=== PATIENT | male | born 1985 | race Caucasian/White ===

== ENCOUNTER 2017-05-02 15:12 | Emergency (ER) | payer MEDICAID ==
[~2017-05-02] VITALS: Ht 170.2 cm; Wt 90.0 kg
[2017-05-02 15:27] VITALS: BP 111/62; PULSE 81; RESP 16; TEMP 98.6; O2SAT 99
[2017-05-02 16:20] VITALS: RESP 16; O2SAT 96
[2017-05-02] MEDS ORDERED: SODIUM CHLOR 0.9% 1000 ML INJ 1,000 ML IV SCH (16:20)
[2017-05-02] MEDS ORDERED: LEVO100T5 PO (16:24)
[2017-05-02] MEDS ORDERED: XANA2TAB2 PO (16:24)
--- NOTE | 2017-05-02 16:29 | PD ---
HPI Chief Complaint: GI Complaint Time Seen by Provider: 16:10 Travel History International Travel<30 days: No Contact w/Intl Traveler<30days: No Traveled to known affect area: No History of Present Illness HPI Patient is a 31-year-old male who presents to emergency room with multiple complaints. Patient reports that he flew from [facility] to [place] one week ago , patient reports that he has been feeling sick for the past week. Patient reports that he has been having fevers and chills, reports that he has been having bodyaches, myalgias, nausea and vomiting. Patient did receive the flu shot this year, reports that multiple members of his family was seen and diagnosed with influenza. Overall, patient reports that he has been feeling so weak; he has not been able to eat or drink anything due to his symptoms. Patient reports that he fell yesterday and today while in the shower and landed on his left hip because he has been feeling so weak. Denies any trauma to his head or neck. Denies LOC. Denies chest pain/sob. Reports that he did began to have a nonproductive cough recently. Patient reports pain to his epigastrium, reports cramping from vomiting so much. Patient reports that he is currently not on any medications at this time. PFSH Past Medical History Medical History: Denies Significant Hx Past Surgical History Surgical History: No Previous Surgery Social History Alcohol Use: Yes Tobacco Use: Yes Substance Use: No Allergies-Medications (Allergen,Severity, Reaction): Coded Allergies: penicillin G (Verified Allergy, Intermediate, loose stool,nausea, 05/02/17 ) tramadol (Verified Allergy, Intermediate, nausea, 05/02/17) ibuprofen (Verified Adverse Reaction, Unknown, stomach ache, 05/02/17) Reported Meds & Prescriptions Reported Meds & Active Scripts Active Zofran (Ondansetron HCl) 4 Mg Tab 4 Mg PO Q6HR PRN Reported Xanax (Alprazolam) 2 Mg Tab 2 Mg PO Q8H PRN Levothyroxine (Levothyroxine Sodium) 100 Mcg Tab 100 Mcg PO DAILY Review of Systems General / Constitutional: Positive: Fever, Chills Eyes: No: Visual changes HENT: No: Headaches Cardiovascular: No: Chest Pain or Discomfort Respiratory: Positive: Cough, No: Shortness of Breath Gastrointestinal: Positive: Nausea, Vomiting, Diarrhea, No: Abdominal Pain Genitourinary: No: Dysuria Musculoskeletal: Positive: Pain (left-sided hip pain) Skin: No Rash Neurologic: No: Weakness Psychiatric: No: Depression Endocrine: No: Polydipsia Hematologic/Lymphatic: No: Easy Bruising Physical Exam Narrative GENERAL: moderate distress SKIN: Focused skin assessment warm/dry. HEAD: Atraumatic. Normocephalic. EYES: Pupils equal and round. No scleral icterus. No injection or drainage. ENT: No nasal bleeding or discharge. Mucous membranes pink and moist. NECK: Trachea midline. No JVD. CARDIOVASCULAR: Regular rate and rhythm. No murmur appreciated. RESPIRATORY: No accessory muscle use. Clear to auscultation. Breath sounds equal bilaterally. GASTROINTESTINAL: Abdomen soft, tenderness to epigastrium, nondistended. Hepatic and splenic margins not palpable. MUSCULOSKELETAL: No obvious deformities. No clubbing. No cyanosis. No edema. Patient with bruising to the left hip, patient with pain with range of motion to left hip, no obvious deformities, pulses intact, neurovascular intact NEUROLOGICAL: Awake and alert. No obvious cranial nerve deficits. Motor grossly within normal limits. Normal speech. PSYCHIATRIC: Appropriate mood and affect; insight and judgment normal. Data Data Last Documented VS Vital Signs Date Time Temp Pulse Resp B/P (MAP) Pulse Ox O2 Delivery O2 Flow Rate FiO2 05/02/17 17:34 16 05/02/17 16:20 96 Room Air 05/02/17 15:27 98.6 81 111/62 (78) Orders Orders Complete Blood Count With Diff (05/02/17 16:20) Comprehensive Metabolic Panel (05/02/17 16:20) Lipase (05/02/17 16:20) Prothrombin Time / Inr (Pt) (05/02/17 16:20) Act Partial Throm Time (Ptt) (05/02/17 16:20) Urinalysis - C+S If Indicated (05/02/17 16:20) Iv Access Insert/Monitor (05/02/17 16:20) Ecg Monitoring (05/02/17 16:20) Oximetry (05/02/17 16:20) NPO (05/02/17 16:20) Morphine Inj (Morphine Inj) (05/02/17 16:30) Ondansetron Inj (Zofran Inj) (05/02/17 16:30) Sodium Chlor 0.9% 1000 Ml Inj (Ns 1000 M (05/02/17 16:20) Sodium Chloride 0.9% Flush (Ns Flush) (05/02/17 16:30) Chest, Single Ap (05/02/17 16:20) Famotidine Inj (Pepcid Inj) (05/02/17 16:30) Influenzae A/B Antigen (05/02/17 16:20) Hip, Uni(Ap&Lat) W Ap Pelvis (05/02/17 ) Sodium Chlor 0.9% 1000 Ml Inj (Ns 1000 M (05/02/17 16:30) Acetaminophen (Tylenol) (05/02/17 17:45) Labs Laboratory Tests Test 05/02/17 16:30 05/02/17 17:30 White Blood Count 7.5 TH/MM3 Red Blood Count 4.87 MIL/MM3 Hemoglobin 13.7 GM/DL Hematocrit 41.9 % Mean Corpuscular Volume 86.0 FL Mean Corpuscular Hemoglobin 28.1 PG Mean Corpuscular Hemoglobin Concent 32.6 % Red Cell Distribution Width 12.8 % Platelet Count 244 TH/MM3 Mean Platelet Volume 8.8 FL Neutrophils (%) (Auto) 59.4 % Lymphocytes (%) (Auto) 34.5 % Monocytes (%) (Auto) 4.2 % Eosinophils (%) (Auto) 0.5 % Basophils (%) (Auto) 1.4 % Neutrophils # (Auto) 4.5 TH/MM3 Lymphocytes # (Auto) 2.6 TH/MM3 Monocytes # (Auto) 0.3 TH/MM3 Eosinophils # (Auto) 0.0 TH/MM3 Basophils # (Auto) 0.1 TH/MM3 CBC Comment DIFF FINAL Differential Comment Prothrombin Time 10.2 SEC Prothromb Time International Ratio 1.0 RATIO Activated Partial Thromboplast Time 25.7 SEC Blood Urea Nitrogen 7 MG/DL Creatinine 0.90 MG/DL Random Glucose 92 MG/DL Total Protein 7.6 GM/DL Albumin 3.4 GM/DL Calcium Level 9.3 MG/DL Alkaline Phosphatase 66 U/L Aspartate Amino Transf (AST/SGOT) 15 U/L Alanine Aminotransferase (ALT/SGPT) 21 U/L Total Bilirubin 0.5 MG/DL Sodium Level 141 MEQ/L Potassium Level 4.0 MEQ/L Chloride Level 106 MEQ/L Carbon Dioxide Level 29.8 MEQ/L Anion Gap 5 MEQ/L Estimat Glomerular Filtration Rate 98 ML/MIN Lipase 118 U/L Urine pH 7.5 Urine Protein NEG mg/dL Urine Glucose (UA) NEG mg/dL Urine Ketones NEG mg/dL Urine Occult Blood NEG Urine Nitrite NEG Urine Bilirubin NEG Urine Leukocyte Esterase NEG MDM Medical Decision Making Medical Screen Exam Complete: Yes Emergency Medical Condition: Yes Medical Record Reviewed: Yes Interpretation(s) Vital Signs Date Time Temp Pulse Resp B/P (MAP) Pulse Ox O2 Delivery O2 Flow Rate FiO2 05/02/17 15:27 98.6 81 16 111/62 (78) 99 Differential Diagnosis Influenza, viral syndrome, gastritis, gastroenteritis, electrolyte abnormality, pneumonia Narrative Course Patient is a 31-year-old male who presents to emergency room with complaints of flulike symptoms which has been ongoing for the past week. Patient reports that his whole family is sick with the flu - patient reports that it has been 5 days since he has been feeling extremely weak with decreased po intake. During the course of the patients emergency department visit, the patients history, examination, and differential diagnosis were reviewed with the patient. The patient was placed on a court monitor with oximetry and frequent blood pressure monitoring. The patient had an IV access obtained and blood work sent for analysis. The patient was initially provided IV fluids, IV Zofran for his nausea and vomiting as well as IV morphine for his hip pain The patients laboratory studies were reviewed and remarkable for: CBC & BMP Diagram 05/02/17 16:30 Total Protein 7.6, Albumin 3.4, Calcium Level 9.3, Alkaline Phosphatase 66, Aspartate Amino Transf (AST/SGOT) 15, Alanine Aminotransferase (ALT/SGPT) 21, Total Bilirubin 0.5 Radiology studies were reviewed and remarkable for: Last Impressions Chest X-Ray 05/02/17 1620 Signed Impressions: Service Date/Time: Tuesday, May 02, 2017 16:40 - CONCLUSION: 1. No acute cardiopulmonary disease. Kristofer Bah MD Hip and Pelvis X-Ray 05/02/17 0000 Signed Impressions: Service Date/Time: Tuesday, May 02, 2017 16:40 - CONCLUSION: 1. No acute fracture or dislocation. Kristofer Bah MD Microbiology Date/Time Source Procedure Growth Status 05/02/17 16:35 Nasal Aspirate Influenza Types A,B Antigen (ROBERT) - Final NEGATIVE FOR FLU A AND B ANTIGEN.... Complete All labs and all studies reviewed in detail: cbc: wnl cmp: wnl UA Patient feeling much better at this time, patient with most likely viral syndrome. Labs are essentially unremarkable and VSS. Discussed need for increased oral hydration with fluids. Plan to discharge patient home with zofran for nausea. He will follow up with his pcp and will return to ER as needed. Signs and symptoms of when to return to the ER was reviewed with patient in detail. Patient was discharged from the ER as he was feeling better. While being discharged, patient requesting narcotic pain medications. Discussed with him that he can take acetaminophen which is appropriate for his hip strain/hip bruising. Patient reports that he cannot work without taking narcotic pain medications and requests a script for narcotic pain medications. Patient began to yell and scream myself as well as staff. I encouraged rest/ ice to hip - work note was provided for him. Patient is not happy as he did not receive a script for narcotic pain medications at discharge Diagnosis Primary Impression: Nausea vomiting and diarrhea Additional Impressions: Viral syndrome Sprain of left hip Patient Instructions: General Instructions Additional Instructions: Please provide patient with a copy of their lab work and studies at discharge* * Please follow up with your primary care doctor in 2-3 days Return to the ER if symptoms worsen or progress Return to the ER as needed Please drink plenty of fluids Med/Other Pt SpecificInfo: Prescription(s) given Scripts Ondansetron (Zofran) 4 Mg Tab 4 MG PO Q6HR Y for NAUSEA OR VOMITING, #20 TAB 0 Refills Prov: Kimberly Garland DO 05/02/17 Disposition: 01 DISCHARGE HOME Condition: Stable Kimberly Garland DO May 02, 2017 16:29
[2017-05-02] MEDS ORDERED: SODIUM CHLOR 0.9% 1000 ML INJ 1,000 ML IV ONE (16:30)
[2017-05-02] MEDS ORDERED: ONDANSETRON HCL 4 MG/2 ML VIAL IVP ONE (16:30)
[2017-05-02] MEDS ORDERED: FAMOTIDINE 20 MG/2 ML VIAL IV PUSH ONE (16:30)
[2017-05-02] MEDS ORDERED: MORPHINE SULFATE 4 MG/ML INJ IV PUSH ONE (16:30)
[2017-05-02] MEDS ORDERED: SODIUM CHLORIDE 0.9% FLUSH 10 ML FLUSH IV FLUSH PRN (16:30)
[2017-05-02 16:52] LABS: AUTOMATED NEUTROPHIL # 4.5 TH/MM3 (1.8-7.7); BASOPHIL # 0.1 TH/MM3 (0-0.2); BASOPHIL % 1.4 % (0.0-2.0); EOSINOPHIL % 0.5 % (0.0-4.0); HEMATOCRIT 41.9 % (39.0-51.0); HEMOGLOBIN 13.7 GM/DL (13.0-17.0); LYMPH % 34.5 % (9.0-44.0); LYMPHOCYTE # 2.6 TH/MM3 (1.0-4.8); MEAN CORPUSCULAR HEMOGLOBIN 28.1 PG (27.0-34.0); MEAN CORPUSCULAR HGB CONC 32.6 % (32.0-36.0); MEAN PLATELET VOLUME 8.8 FL (7.0-11.0); MONO % 4.2 % (0.0-8.0); MONOCYTE # 0.3 TH/MM3 (0-0.9); NEUT % 59.4 % (16.0-70.0); PLATELET COUNT 244 TH/MM3 (150-450); RED BLOOD COUNT 4.87 MIL/MM3 (4.50-5.90); RED CELL DISTRIBUTION WIDTH 12.8 % (11.6-17.2); WHITE BLOOD COUNT 7.5 TH/MM3 (4.0-11.0)
[2017-05-02 17:01] LABS: CHLORIDE 106 MEQ/L (98-107); SODIUM (NA) 141 MEQ/L (136-145)
--- NOTE | 2017-05-02 17:02 | RADRPT ---
EXAM DATE/TIME: 05/02/2017 16:40 [facility] COMPARISON: No previous studies available for comparison. INDICATIONS : Left hip pain after fall. MEDICAL HISTORY : None. SURGICAL HISTORY : None. ENCOUNTER: Initial ACUITY: 2 days PAIN SCORE: 8/10 LOCATION: Left hip. FINDINGS: Examination of the left hip was performed with AP Pelvis. The primary and secondary trabecular patte rn of the femoral neck is intact. The hip joint is of normal width without significant sclerosis or bony hypertrophy. The acetabulum is grossly intact. CONCLUSION: 1. No acute fracture or dislocation. Kristofer Bah MD on May 02, 2017 at 17:00 Board Certified Radiologist. This report was verified electronically.
--- NOTE | 2017-05-02 17:02 | RADRPT ---
EXAM DATE/TIME: 05/02/2017 16:40 [facility] COMPARISON: No previous studies available for comparison. INDICATIONS : Short of breath after fall. MEDICAL HISTORY : None. SURGICAL HISTORY : None. ENCOUNTER: Initial ACUITY: 2 days PAIN SCORE: 0/10 LOCATION: Bilateral chest FINDINGS: A single view of the chest demonstrates the lungs to be symmetrically aerated without evidence of mas s, infiltrate or effusion. The cardiomediastinal contours are unremarkable. Osseous structures are intact. CONCLUSION: 1. No acute cardiopulmonary disease. Kristofer Bah MD on May 02, 2017 at 17:00 Board Certified Radiologist. This report was verified electronically.
[2017-05-02 17:05] LABS: ALBUMIN 3.4 GM/DL (3.4-5.0); BICARBONATE 29.8 MEQ/L (21.0-32.0); BLOOD UREA NITROGEN 7 MG/DL (7-18); CALCIUM 9.3 MG/DL (8.5-10.1); GLUCOSE,RANDOM 92 MG/DL (74-106); LIPASE 118 U/L (73-393)
[2017-05-02 17:08] LABS: ALT (GPT) 21 U/L (12-78); AST (GOT) 15 U/L (15-37); GLOMERULAR FILTRATION RATE 98 ML/MIN (>89)
[2017-05-02 17:10] LABS: TOTAL BILIRUBIN ADULT 0.5 MG/DL (0.2-1.0); TOTAL PROTEIN 7.6 GM/DL (6.4-8.2)
[2017-05-02 17:11] LABS: ALKALINE PHOSPHATASE 66 U/L (45-117)
[2017-05-02 17:14] LABS: PROTHROMBIN TIME - PATIENT 10.2 SEC (9.8-11.6)
[2017-05-02 17:34] VITALS: RESP 16
[2017-05-02] MEDS ORDERED: ZOFR4TAB PO (17:44)
[2017-05-02] MEDS ORDERED: ACETAMINOPHEN 325 MG TAB PO ONE (17:45)
[2017-05-02 18:05] LABS: BLOOD, URINE NEG (NEG); GLUCOSE,URINE NEG (NEG); KETONE, URINE NEG (NEG); NITRITE,URINE NEG (NEG); PH, URINE 7.5 (5.0-8.5); URINE LEUKOCYTE ESTERASE NEG (NEG)
[2017-05-02 18:12] LABS: BILIRUBIN, URINE NEG (NEG)
[2017-05-02 18:13] LABS: AMORPHOUS SEDIMENT, URINE FEW; SQUAMOUS EPITHELIAL CELL URINE 0-5 /hpf (0-5); URINE COLOR YELLOW (YELLW/STRAW); WBC, URINE 0-2 /hpf (0-5)
[2017-05-02 18:22] VITALS: BP 110/70
[2017-05-03] MEDS ORDERED: thorazine PO (03:39)
[2017-05-03] MEDS ORDERED: AMBI10TA PO (03:45)
[2017-05-03] MEDS ORDERED: CYCL5TAB PO (03:45)
[2017-05-03] MEDS ORDERED: SUBO8MIS SL (03:45)
[2017-05-03] MEDS ORDERED: TRAZ50TA12 PO (03:46)
== END 2017-05-02 18:26 | disposition home or self-care (01) ==
LOC: PHED 15:12
DX: S73.102A Unspecified sprain of left hip, initial encounter (principal); B34.9 Viral infection, unspecified; W18.2XXA Fall in (into) shower or empty bathtub, initial encounter; Z72.0 Tobacco use; Z79.899 Other long term (current) drug therapy; Z88.0 Allergy status to penicillin; Z88.5 Allergy status to narcotic agent; Z88.6 Allergy status to analgesic agent
CPT/HCPCS: 71010; 73502; 80053; 81001; 83690; 85025; 85610; 85730; 87804; 96361; 96374; 96375; 99284; J2270; J2405; J7030

== ENCOUNTER 2017-05-03 03:18 | Emergency (ER) | payer MEDICAID, OTHER ==
[~2017-05-03] VITALS: Ht 170.2 cm; Wt 90.0 kg
[~2017-05-03 03:18] MED LIST: LEVO100T5 PO; XANA2TAB2 PO; ZOFR4TAB PO
[2017-05-03 03:29] VITALS: BP 126/75; PULSE 86; RESP 20; TEMP 98.4; O2SAT 99
[2017-05-03] MEDS ORDERED: thorazine PO (03:39)
[2017-05-03] MEDS ORDERED: AMBI10TA PO (03:45)
[2017-05-03] MEDS ORDERED: SUBO8MIS SL (03:45)
[2017-05-03] MEDS ORDERED: cloNIDine HCL 0.1 MG TAB PO ONE (03:45)
[2017-05-03] MEDS ORDERED: ONDANSETRON ODT 4 MG TAB PO ONE (03:45)
[2017-05-03] MEDS ORDERED: CYCL5TAB PO (03:45)
[2017-05-03] MEDS ORDERED: TRAZ50TA12 PO (03:46)
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
[2017-05-03 05:01] VITALS: BP 124/82; PULSE 71; RESP 16; TEMP 98.4; O2SAT 99
[2017-05-03 06:48] VITALS: BP 118/73; PULSE 64; RESP 18; TEMP 97.7; O2SAT 98
[2017-05-03 10:54] VITALS: BP 118/70; PULSE 67; RESP 18
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
--- NOTE | 2017-05-03 14:37 | PD ---
Physical Exam Time Seen by Provider: 14:36 Narrative NATIVIDAD Quiles has evaluated the patient, lifted the Blanco act and cleared the patient for discharge. Data Data Last Documented VS Vital Signs Date Time Temp Pulse Resp B/P (MAP) Pulse Ox O2 Delivery O2 Flow Rate FiO2 05/03/17 10:54 67 18 118/70 (86) Room Air 05/03/17 06:48 97.7 98 Orders Orders Ondansetron Odt (Zofran Odt) (05/03/17 03:45) Clonidine (Catapres) (05/03/17 03:45) ^ Sitter (05/03/17 03:44) Psych Screen (05/03/17 03:44) Drug Screen, Random Urine (05/03/17 03:44) Diet Regular Basic (05/03/17 Breakfast) Diet Regular Basic (05/03/17 Lunch) Labs Laboratory Tests Test 05/03/17 04:02 Urine Opiates Screen NEG Urine Barbiturates Screen NEG Urine Amphetamines Screen NEG Urine Benzodiazepines Screen POS Urine Cocaine Screen NEG Urine Cannabinoids Screen POS MDM Supervised Visit with MASSIMO: No Narrative Course NATIVIDAD Quiles has evaluated the patient, lifted the Blanco act and cleared the patient for discharge. Patient contracts safety. Denies suicidal or homicidal ideations. Patient will be provided community resource packet to /ALISON for follow-up. Has friends and family for support. Patient was medically cleared by alternate provider prior to psych screening. Patient has been evaluated by psychiatry and and is now cleared for discharge. Diagnosis Primary Impression: Opiate withdrawal Additional Impression: Suicidal ideation Referrals: ALISON (Out patient) [facility] Primary Care Physician Psychiatrist Debbi ROSAS [facility] Patient Instructions: General Instructions, Opioid Dependence (ED), Suicide Prevention for Adults (ED) Additional Instruction: Contract safety to your self and others Follow-up with psychiatry Follow-up with primary care provider Follow-up with Eusebio Miranda Return to the emergency department immediately with worsening of symptoms Med/Other Pt SpecificInfo: No Change to Meds, No Meds Exist/No RX given Disposition: 01 DISCHARGE HOME Condition: Stable Tamika Gonzales May 03, 2017 14:37
[2017-05-03 14:43] VITALS: BP 118/70; PULSE 67; RESP 18
== END 2017-05-03 14:56 | disposition home or self-care (01) ==
LOC: NEPD 03:18 → NEPJ 14:56
DX: F19.94 Other psychoactive substance use, unspecified with psychoactive substance-induced mood disorder (principal); F11.23 Opioid dependence with withdrawal; E03.9 Hypothyroidism, unspecified
CPT/HCPCS: 80307; 99285

== ENCOUNTER 2017-05-27 12:35 | Emergency (ER) | payer MEDICAID, OTHER ==
[~2017-05-27] VITALS: Ht 177.8 cm; Wt 85.0 kg
[~2017-05-27 12:35] MED LIST changes: +AMBI10TA PO; +CYCL5TAB PO; +SUBO8MIS SL; +TRAZ50TA12 PO; +thorazine PO
[2017-05-27 12:48] VITALS: BP 116/73; PULSE 85; RESP 16; TEMP 98; O2SAT 97
--- NOTE | 2017-05-27 13:09 | PD ---
HPI Chief Complaint: Medical Clearance Time Seen by Provider: 12:51 Travel History International Travel<30 days: No Contact w/Intl Traveler<30days: No Traveled to known affect area: No History of Present Illness HPI This patient is brought in after heroin overdose. The overdose was accidental. He was not trying to hurt himself. He does have history of IV drug abuse. He injected some heroin into his left wrist. His girlfriend came back from [facility] and found him in the car with decreased responsiveness. Paramedics were called and they brought him here. No Narcan was needed. He woke up on his own. At this point he is asymptomatic and feels fine. Symptoms severity is mild. No alleviating factors. PFSH Past Medical History Asthma: Yes Thyroid Disease: Yes (HYPOTHYROIDISM) Social History Alcohol Use: No Tobacco Use: Yes Substance Use: Yes (HX OF OPIATE ABUSE. WAS ON SUBOXONE) Allergies-Medications (Allergen,Severity, Reaction): Coded Allergies: penicillin G (Verified Allergy, Intermediate, loose stool,nausea, 05/02/17 ) tramadol (Verified Allergy, Intermediate, nausea, 05/02/17) ibuprofen (Verified Adverse Reaction, Unknown, stomach ache, 05/02/17) Reported Meds & Prescriptions Reported Meds & Active Scripts Active Zofran (Ondansetron HCl) 4 Mg Tab 4 Mg PO Q6HR PRN Reported Trazodone (Trazodone HCl) 50 Mg Tab Mg PO HS Flexeril (Cyclobenzaprine HCl) 5 Mg Tab Mg PO DAILY Suboxone Sublingual Film (Buprenorphine-Naloxone Sublingual Film) 8-2 Mg Film 1 Film SL Unique ID number required: Ambien (Zolpidem Tartrate) 10 Mg Tab 10 Mg PO HS PRN [thorazine] Mg PO DAILY Xanax (Alprazolam) 2 Mg Tab 2 Mg PO Q8H PRN Levothyroxine (Levothyroxine Sodium) 100 Mcg Tab 100 Mcg PO DAILY Review of Systems General / Constitutional: No: Fever Eyes: No: Visual changes HENT: No: Headaches Cardiovascular: No: Chest Pain or Discomfort Respiratory: No: Shortness of Breath Gastrointestinal: No: Abdominal Pain Genitourinary: No: Dysuria Musculoskeletal: No: Pain Skin: No Rash Neurologic: Positive: Change in Mentation, No: Weakness Psychiatric: Positive: Substance Abuse, No: Depression Endocrine: No: Polydipsia Hematologic/Lymphatic: No: Easy Bruising Physical Exam Narrative GENERAL: Well-nourished, well-developed patient in no apparent distress. SKIN: Focused skin assessment reveals no rash and nodules. Skin is Warm and dry. HEAD: Atraumatic. Normocephalic. EYES: Pupils equal and round. No scleral icterus. No injection or drainage. ENT: No nasal bleeding or discharge. Mucous membranes pink and moist. NECK: Trachea midline. No JVD. CARDIOVASCULAR: Regular rate and rhythm. No murmur appreciated. RESPIRATORY: No accessory muscle use. Clear to auscultation. Breath sounds equal bilaterally. GASTROINTESTINAL: Abdomen soft, non-tender, nondistended. Hepatic and splenic margins not palpable. MUSCULOSKELETAL: No obvious deformities. No clubbing. No cyanosis. No edema. NEUROLOGICAL: Awake and alert. No obvious cranial nerve deficits. Motor grossly within normal limits. Normal speech. PSYCHIATRIC: Appropriate mood and affect; insight and judgment poor . Data Data Last Documented VS Vital Signs Date Time Temp Pulse Resp B/P (MAP) Pulse Ox O2 Delivery O2 Flow Rate FiO2 05/27/17 12:50 80 16 05/27/17 12:48 98.0 116/73 (87) 97 Room Air MDM Medical Decision Making Medical Screen Exam Complete: Yes Emergency Medical Condition: Yes Medical Record Reviewed: Yes Differential Diagnosis Overdose, overmedication, polysubstance abuse Narrative Course I have reviewed the patient's electronic medical record. Patient is brought in after heroin overdose. This was accidental and not requiring psychiatric evaluation. He is normal vital signs and normal mental status. Required no Narcan. I'm going to observe him for awhile. Patient's been here an hour and a half and is still asymptomatic and fine. Stable for outpatient follow-up. Diagnosis Primary Impression: Accidental heroin overdose Qualified Codes: T40.1X1A - Poisoning by heroin, accidental (unintentional), initial encounter Additional Instructions: The patient was advised to follow up with their physician and return if they worsen. Med/Other Pt SpecificInfo: Other Disposition: 01 DISCHARGE HOME Condition: Stable Tamir Francis MD May 27, 2017 13:09
[2017-05-27 14:30] VITALS: BP 127/67
== END 2017-05-27 14:40 | disposition home or self-care (01) ==
LOC: NEPD 12:35
DX: T40.1X1A Poisoning by heroin, accidental (unintentional), initial encounter (principal); J45.909 Unspecified asthma, uncomplicated; E03.9 Hypothyroidism, unspecified; Z72.0 Tobacco use; Z88.0 Allergy status to penicillin; Z79.899 Other long term (current) drug therapy; Z88.6 Allergy status to analgesic agent; Z88.5 Allergy status to narcotic agent
CPT/HCPCS: 99282